=== PATIENT | female | born 1995 | race Two or more races ===

== ENCOUNTER 2017-02-16 05:13 | Day surgery (SDC) | payer OTHER ==
[2017-02-13 16:24] VITALS: BMI 26.2
[2017-02-16] MEDS ORDERED: oxyCODONE HCL 5 MG TABLET PO PRN (09:37)
[2017-02-16] MEDS ORDERED: PROMETHAZINE HCL 25 MG/1 ML VIAL IVPUSH PRN (09:37)
[2017-02-16] MEDS ORDERED: ONDANSETRON 4 MG/2 ML VIAL IVPUSH PRN (09:37)
[2017-02-16] MEDS ORDERED: LACTATED RINGERS SOLUTION 1,000 ML IV SCH (09:45)
[2017-02-16] MEDS ORDERED: MIDAZOLAM HCL 2 MG/2 ML SINGLE DOSE VIAL ONE (09:57)
[2017-02-16] MEDS ORDERED: PROPOFOL 20 ML ONE (09:57)
[2017-02-16] MEDS ORDERED: SUCCINYLCHOLINE CHLORIDE 200 MG/10 ML VIAL ONE (09:57)
[2017-02-16 12:15] VITALS: TEMP 97.9
--- NOTE | 2017-02-16 13:13 | HP ---
History & Physical Update - History History: No Change - Physical Physical: No Change - Assessment Assessment: No Change - Plan Plan: No Change
--- NOTE | 2017-02-16 13:15 | OP ---
Operative Note - Note: Operative Date: 02/16/17 Pre-Operative Diagnosis: Submucosal myoma. menorrhagia Operation: Hysteroscopic myomectomy. Suction DC Findings: Anteior submucosal myoma Post-Operative Diagnosis: Same as Pre-op Surgeon: Lola Shell Anesthesia: General Operative Report Dictated: Yes
[2017-02-16 14:59] VITALS: BP 123/69; PULSE 74
--- NOTE | 2017-02-17 10:29 | PATH ---
Surgical Pathology Report Patient Name: DARLEEN APODACA [facility]. Rec. #: [id number] /Age/Gender: 1995 (Age: 21) / F Account: [id number] Location: [facility] SUR[facility]ICAL Taken: 02/16/2017 Received: 02/16/2017 Reported: 02/17/2017 Physicians: Lola Shell M.D. Specimen(s) Received A: POLYP/UTERINE B: ENDOMETRIAL CURETTINGS Clinical History Endometrial polyp Final Diagnosis A. ENDOMETRIUM, POLYPECTOMY: BENIGN ENDOMETRIAL POLYP. B. ENDOMETRIUM, CURETTING: PORTIONS OF ENDOMETRIUM CONSISTENT WITH BENIGN ENDOMETRIAL POLYP, WITH SCANT ADMIXED MYOMETRIAL TISSUE. NO ENDOMETRIAL HYPERPLASIA OR CARCINOMA IDENTIFIED. Electronically Signed Jairon Daniels M.D. Gross Description A. Received is a cracked container labeled "uterine polyp." The specimen is identified within the spilled formalin within the bag that the container is received in. The specimen is a 0.8 x 0.5 x 0.2 cm steiner-red, polypoid portion of soft tissue. The specimen is submitted in toto in one cassette. B. Received in formalin labeled "endometrial curetting," is a 1.5 x 1.1 x 0.3 cm aggregate of steiner soft tissue fragments. The formalin is filtered and the specimen is entirely submitted in one cassette. 02/16/201702/16/2017
== END 2017-02-16 14:10 | disposition home or self-care (01) ==
LOC: JASU-SURG 05:13
PROVIDERS: ATTEND Obstetrics & Gynecology
PROC: 0UDB8ZX Extraction of Endometrium, Via Natural or Artificial Opening Endoscopic, Diagnostic (ICD-10-PCS; principal; 2017-02-16 10:00)
PROC: 0UB98ZZ Excision of Uterus, Via Natural or Artificial Opening Endoscopic (ICD-10-PCS; 2017-02-16 10:00)
DX: D25.0 Submucous leiomyoma of uterus (principal); N92.0 Excessive and frequent menstruation with regular cycle
CPT/HCPCS: 84703; 86850; 86900; 86901; 88305-TC; 94760